=== PATIENT | male | born 1995 | race Caucasian/White ===

== ENCOUNTER 2019-02-12 18:13 | Emergency (ER) | payer SELFPAY ==
[2019-02-12] MEDS: LIDOCAINE/MYLANTA 40 ML BTL PO (19:12)
[2019-02-12] MEDS: FAMOTIDINE 20 MG TAB PO (19:12)
== END 2019-02-12 19:15 | disposition home or self-care (01) ==
LOC: FTE 18:13
DX: R10.13 Epigastric pain (principal)
CPT/HCPCS: 99282